=== PATIENT | male | born 1995 | race Hispanic/Latino ===

== ENCOUNTER 2022-06-17 10:29 | Emergency (ER) | payer OTHER, SELFPAY ==
[~2022-06-17 10:29] MED LIST: Iopamidol 300 61% 100 ML VIAL FS ONE
[2022-06-17] MEDS ORDERED: Fentanyl 100 MCG/2 ML VIAL ONE (11:34)
[2022-06-17] MEDS ORDERED: Ondansetron PF 4 MG/2 ML Vial ONE (11:34)
[2022-06-17 12:01] LABS: #Monocytes 1.4 10x3/uL (0.0-1.1); #Neutrophils 14.4 10x3/uL (1.5-8.4); %Basophils 0.2 % (0.0-2.0); %Eosinophils 0.2 % (0.0-6.0); %Lymphocytes 13.8 % (18.0-47.0); %Monocytes 7.6 % (0.0-10.0); %Neutrophils 77.5 % (40.0-75.0); Hemoglobin 13.5 g/dL (13.5-17.5); Mean Corpuscular HGB CONC 33.5 g/dL (32.0-36.0); Mean Corpuscular Hemoglobin 30.9 pg (27.0-33.0); Mean Corpuscular Volume 92.2 fl (81.2-95.1); Mean Platelet Volume 9.9 fl (7.4-10.4); Platelet Count 255 10x3/uL (150-450); RBC Distribution Width 13.7 % (11.5-14.5); Red Blood Cell (RBC) Count 4.37 10x6/uL (4.32-5.72); White Blood Cell (WBC) Count 18.6 10x3/uL (3.5-10.5)
[2022-06-17 12:15] LABS: ALT (SGPT) 14 U/L (8-55); AST (SGOT) 16 U/L (5-34); Albumin 4.5 g/dL (3.5-5.0); Alkaline Phosphatase 88 U/L (40-110); Anion Gap 15 mmol/L (10-20); BUN (Urea Nitrogen) 16 mg/dL (8.9-20.6); Bilirubin, Total 0.9 mg/dL (0.2-1.2); Calc. Creatinine Clearance 0 mL/min (70-130); Calcium 9.6 mg/dL (7.8-10.44); Carbon Dioxide 25 mmol/L (22-29); Chloride 98 mmol/L (98-107); Estimated GFR 122; Globulin 3.6 g/dL (2.4-3.5); Glucose 111 mg/dL (70-105); Lipase 5 U/L (8-78); Potassium 4.1 mmol/L (3.5-5.1); Protein, Total 8.1 g/dL (6.0-8.3); Sodium 134 mmol/L (136-145)
[2022-06-17] MEDS ORDERED: cefTRIAXone (ROCEPHIN) 1 GM VIAL ONE (12:48)
[2022-06-17] MEDS ORDERED: Azithromycin 500 MG VIAL ONE (12:49)
== END 2022-06-17 14:16 | disposition home or self-care (01) ==
LOC: CSHERS 10:29
DX: J18.1 Lobar pneumonia, unspecified organism (principal); R10.9 Unspecified abdominal pain
CPT/HCPCS: 70450; 71260; 74177; 80053; 83605; 83690; 85025; 93005; 96365; 96367; 96375; J0456; J0696; J2405; J3010; Q9967